=== PATIENT | female | born 1950 ===

== ENCOUNTER 2022-06-16 11:37 | Emergency (ER) | payer MEDICARE, BC ==
[2022-06-16] MEDS: cefTRIAXone 1 GM, Lidocaine 1% 1.2 ML IM SCH ×4 (12:09→12:23)
== END 2022-06-16 12:22 | disposition home or self-care (01) ==
LOC: CC.ED 11:37
DX: N39.0 Urinary tract infection, site not specified (principal)
CPT/HCPCS: 81001; 87086; 87088; 87186; 99283; J0696